=== PATIENT | female | born 1945 | race Caucasian/White ===

== ENCOUNTER 2017-02-22 21:28 | Emergency (ER) | payer MEDICARE ==
[2017-02-22] MEDS ORDERED: Aspirin Low Dose CHEW TAB* 81 MG PO ONE (21:56)
--- NOTE | 2017-02-22 22:33 | ED ---
Jeet Lawrence Billy, scribed for Manjeet Chris MD on 02/22/17 at 2155 . HPI Chest Pain - HPI Summary HPI Summary: Patient is a 71 year-old female coming to [facility] for evaluation of chest pain starting 2 hours ago. Pain is constant and radiates to the back. Patient was at rest during onset. Nothing makes symptoms better or worse. She sees Dr. Zarate (PCP ) and had her last doctor's visit last month. - History of Current Complaint Chief Complaint: EDChestPainROMI Time Seen by Provider: 02/22/17 21:37 Hx Obtained From: Patient Onset/Duration: Started Hours Ago, Still Present Time of Onset: 20:00 Timing: Constant Initial Severity: Moderate Current Severity: Moderate Pain Intensity: 2 Pain Scale Used: 0-10 Numeric Chest Pain Radiates: Yes Chest Pain Radiates To:: Back Character: Pressure/Squeezing Aggravating Factor(s): Nothing Alleviating Factor(s): Nothing Associated Signs and Symptoms: Positive: Chest Pain - Allergy/Home Medications Allergies/Adverse Reactions: Allergies Allergy/AdvReac Type Severity Reaction Status Date / Time Bee Venom Allergy Severe Swelling Verified 02/22/17 21:33 Sulfa Antibiotics Allergy Intermediate Rash Verified 02/22/17 21:33 COW'S MILK / DAIRY Allergy Intermediate Congestion Uncoded 02/22/17 21:33 ENVIRONMENT/SEASONAL HAYFEVER Allergy Intermediate SNEEZING, Uncoded 02/22/17 21 :33 RUNNY NOSE, WATERY EYES PMH/Surg Hx/FS Hx/Imm Hx Respiratory History: Reports: Hx Asthma - RESCUE INHALER GI History: Reports: Hx Gastroesophageal Reflux Disease, Other GI Disorders History: Reports: Other Problems/Disorders - HX OF UTI - NONE NOW Musculoskeletal History: Reports: Hx Arthritis - RIGHT HIP, BILATERAL FINGERS Denies: Hx Rheumatoid Arthritis, Hx Osteoporosis Sensory History: Reports: Hx Contacts or Glasses - GLASSES Denies: Hx Hearing Aid Opthamlomology History: Reports: Hx Contacts or Glasses - GLASSES - Cancer History Hx Chemotherapy: No Hx Radiation Therapy: No - Surgical History Surgery Procedure, Year, and Place: 2013 MYRINGOTOMY WITH RIGHT TUBE INSERTION, OFFICE. 1989 APPENDECTOMY, [facility] [place] Hx Anesthesia Reactions: No Infectious Disease History: No Infectious Disease History: Denies: Traveled Outside the [place] in Last 30 Days - Family History Family History: FHx of osteoporosis. - Social History Alcohol Use: None Substance Use Type: Reports: None Smoking Status (MU): Never Smoked Tobacco Review of Systems Negative: Fever Positive: Chest Pain All Other Systems Reviewed And Are Negative: Yes Physical Exam Triage Information Reviewed: Yes Vital Signs On Initial Exam: Initial Vitals Temp Pulse Resp BP Pulse Ox 98.9 F 73 15 152/76 100 02/22/17 21:29 02/22/17 21:29 02/22/17 21:29 02/22/17 21:29 02/22/17 21:29 Vital Signs Reviewed: Yes Appearance: Positive: No Pain Distress, Thin Skin: Positive: Warm Head/Face: Positive: Normal Head/Face Inspection Eyes: Positive: PATRICIA ENT: Positive: Hearing grossly normal Neck: Positive: Supple Respiratory/Lung Sounds: Positive: Clear to Auscultation, Breath Sounds Present Cardiovascular: Positive: RRR Abdomen Description: Positive: Nontender, Soft Bowel Sounds: Positive: Present Musculoskeletal: Positive: Strength/ROM Intact Neurological: Positive: Alert, Oriented to Person Place, Time Psychiatric: Positive: Affect/Mood Appropriate Diagnostics - Vital Signs Vital Signs Temp Pulse Resp BP Pulse Ox 02/22/17 21:29 98.9 F 73 15 152/76 100 - Laboratory Result Diagrams: 02/22/17 22:42 02/22/17 22:42 Lab Statement: Any lab studies that have been ordered have been reviewed, and results considered in the medical decision making process. - Radiology CXR Xray Interpretation: No Acute Changes - HYPERINFLATION Radiology Interpretation Completed By: ED Physician - EKG 2134 EKG Interpretation: NSR 71 bpm, LBBB Re-Evaluation - Re-Evaluation First Eval Re-Evaluation Time: 02:40 Change: Improved Comment: Labs and imaging reviewed. Chest Pain Course/Dx - Diagnoses Provider Diagnoses: Chest pain Discharge - Discharge Plan Condition: Stable Disposition: HOME Patient Education Materials: Chest Pain (ED) Referrals: Deandre Zarate MD [Primary Care Provider] - The documentation as recorded by the Jeet perez Billy accurately reflects the service I personally performed and the decisions made by me, Manjeet Chris MD.
[2017-02-22 23:00] LABS: Hematocrit 39 % (35-47); Hemoglobin 13.2 g/dl (12.0-16.0); Mean Corpuscular HGB Conc 34 g/dl (31-36); Mean Corpuscular Hemoglobin 30 pg (27-31); Mean Corpuscular Volume 89 fL (80-97); Mean Platelet Volume 8 um3 (7.4-10.4); Red Blood Count 4.39 10^6/ul (4.0-5.4); Red Cell Distribution Width 13 % (10.5-15)
[2017-02-22 23:18] LABS: Albumin 4.5 g/dL (3.2-5.2); BUN/Creatinine Ratio 38.6 (8-20); Calcium 9.9 mg/dL (8.6-10.3); EGFR African American 106.7 (>60); Globulin 2.9 g/dL (2-4); Magnesium 2.1 mg/dL (1.9-2.7); Potassium 3.1 mmol/L (3.5-5.0); Total Bilirubin 0.3 mg/dL (0.2-1.0); Total Protein 7.4 g/dL (6.4-8.9)
[2017-02-23 02:58] VITALS: BP 119/59
--- NOTE | 2017-02-23 07:24 | RAD ---
INDICATION: Chest pain. COMPARISON: Comparison is made with a prior chest x-ray study from May 16, 2011. TECHNIQUE: Dual-energy PA and lateral views of the chest were obtained. FINDINGS: The heart is within normal limits in size. Mediastinal and hilar contours appear within normal limits. The lungs are hyperinflated. There is bilateral apical pleural thickening and linear parenchymal densities which are unchanged most consistent with pleural-parenchymal scarring. The lungs are otherwise clear. No pleural effusion is seen. IMPRESSION: NO EVIDENCE FOR ACTIVE CARDIOPULMONARY DISEASE.
== END 2017-02-23 02:58 | disposition home or self-care (01) ==
LOC: ED 21:28
DX: R07.9 Chest pain, unspecified (principal)
CPT/HCPCS: 36415; 71020; 80053; 83605; 83735; 84484; 85025; 93005; 99285; A9270-GY